=== PATIENT | female | born 1975 | race African-American/Black ===

== ENCOUNTER 2016-08-24 13:24 | Emergency (ER) | payer OTHER ==
[2016-08-24 13:58] VITALS: BP 127/87; PULSE 78; TEMP 97.7; BMI 20.9
--- NOTE | 2016-08-24 15:57 | PDOC ---
History of Present Illness - General Chief Complaint: Back Pain Stated Complaint: BRUISE ON ARM AND BACK Time Seen by Provider: 08/24/16 15:23 History Source: Patient Exam Limitations: No Limitations - History of Present Illness Initial Comments: 08/24/16 15:59 Patient is here with multiple complaints including #1 a itchy type rash to her left mid thigh inner aspect times one week , no pain, no drainage, no one else in the home is affected, has taken no medication or provided no relief #2 low back pain and spasm 3-4 days, has taken no medications for relief, is uncertain as to cause #3 Right knee clicking and pain 2 months Occurred: reports: last week Severity: reports: mild Associated Symptoms (Fall): denies symptoms Past History - Travel Traveled outside of the country in the last 30 days: No Close contact w/someone who was outside of country & ill: No - Past Medical History Allergies/Adverse Reactions: Allergies Allergy/AdvReac Type Severity Reaction Status Date / Time Penicillins Allergy Verified 08/24/16 13:58 Home Medications: Ambulatory Orders NK [No Known Home Medication] 08/24/16 Psychiatric Problems: Yes (DEPRESSION) - Psycho/Social/Smoking Cessation Hx Anxiety: No Suicidal Ideation: No Smoking History: Current every day smoker Have you smoked in the past 12 months: No Number of Cigarettes Smoked Daily: 5 Information on smoking cessation initiated: No Hx Alcohol Use: No Drug/Substance Use Hx: No Trauma Specific PMHX - Complaint Specific PMHX Back Injury: No Neck Injury: No Review of Systems - Review of Systems Able to Perform ROS?: Yes Is the patient limited Armenian proficient: Yes Constitutional: Yes: Symptoms Reported, See HPI, Malaise. No: Fever HEENTM: No: Symptoms Reported Respiratory: No: Symptoms reported ABD/GI: No: Symptoms Reported : No: Symptoms Reported Musculoskeletal: Yes: Symptoms Reported, See HPI, Back Pain Integumentary: Yes: Symptoms Reported, See HPI, Rash (inner left thigh) Neurological: Yes: Symptoms reported, See HPI, Tingling. No: Headache All Other Systems: Reviewed and Negative *Physical Exam - Vital Signs Last Vital Signs Temp Pulse Resp BP Pulse Ox 97.7 F 78 18 127/87 100 08/24/16 13:54 08/24/16 13:54 08/24/16 13:54 08/24/16 13:54 08/24/16 13:54 - Physical Exam General Appearance: Yes: Nourished, Appropriately Dressed. No: Apparent Distress HEENT: positive: LOI, Normal ENT Inspection, TMs Normal, Pharynx Normal Respiratory/Chest: positive: Lungs Clear, Normal Breath Sounds Musculoskeletal: positive: Normal Inspection, Muscle Spasm. negative: Vertebral Tenderness (has some mild tension and minimal spasm noted to the paravertebral spinous muscles bilateral lumbar spine. No true bone tenderness, range of motion is unimpaired) Extremity: positive: Normal Capillary Refill, Normal Range of Motion, Other. 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, Fully Oriented, Alert, Normal Mood/ Affect, Normal Response, Motor Strength 5/5 Progress Note - Progress Note Progress Note: #1 pruritic rash, will treat with one dose of Decadron and topical hydrocortisone creams #2 back strain, will treat with NSAIDs and cyclobenzaprine #3 knee strain will treat with NSAIDs Medical Decision Making - Medical Decision Making 08/24/16 16:13 *DC/Admit/Observation/Transfer Diagnosis at time of Disposition: Spasm of back muscles, Rash - Discharge Dispostion Disposition: HOME Condition at time of disposition: Stable Admit: No - Patient Instructions Printed Discharge Instructions: DI for Back Strain or Sprain, DI for Rash Additional Instructions: Rest, no heavy lifting or exercise until pain is resolved Hot soaks to neck and low back as often as possible/hot showers or Jacuzzis No massage or therapy until spasm is gone Continue ibuprofen 2-200 mg tablets every 6 hours for the next 3 days then as needed for pain and swelling Cyclobenzaprine 1-10mg every 8 hours as needed for spasm Inspect house for any insects or infestations You have been given 1 dose of dexamethasone 10 mg for the itching rash. apply hydrocortisone cream twice daily until rash is resolved May use Benadryl 25 mg tablets every 8 hours as needed for itching If not significant improvement within 24 hours with medication and rest regime, followup with private physician for change in medications and /or therapy. - Post Discharge Activity Work/School Note: Back to Work
[2016-08-24] MEDS ORDERED: CYCLOBENZAPRINE HCL 10 MG TABLET (FP) PO ONE (16:02)
[2016-08-24] MEDS ORDERED: KETOROLAC TROMETHAMINE 60 MG/2 ML VIAL IM ONE (16:02)
[2016-08-24] MEDS ORDERED: DEXAMETHASONE SOD PHOSPHATE 10 MG/1 ML VIAL IM ONE (16:02)
[2016-08-24] MEDS ORDERED: KETOROLAC TROMETHAMINE 60 MG/2 ML VIAL ONE (16:07)
[2016-08-24] MEDS ORDERED: DEXAMETHASONE SOD PHOSPHATE 10 MG/1 ML VIAL ONE (16:07)
[2016-08-24] MEDS ORDERED: CYCLOBENZAPRINE HCL 10 MG TABLET (FP) ONE (16:08)
== END 2016-08-24 16:13 | disposition home or self-care (01) ==
LOC: JERFT 13:24 → JER 13:24 → JERFT 16:13
PROC: 3E033GC Introduction of Other Therapeutic Substance into Peripheral Vein, Percutaneous Approach (ICD-10-PCS; principal; 2016-08-24)
PROC: 3E023GC Introduction of Other Therapeutic Substance into Muscle, Percutaneous Approach (ICD-10-PCS; 2016-08-24)
DX: M62.830 Muscle spasm of back (principal); R21 Rash and other nonspecific skin eruption; F32.9 Major depressive disorder, single episode, unspecified; F17.210 Nicotine dependence, cigarettes, uncomplicated
CPT/HCPCS: 96372; 99281-25

== ENCOUNTER 2025-01-30 19:48 | Observation (INO) | payer OTHER ==
[2025-01-30] MEDS ORDERED: ACETAMINOPHEN INJECTION 100 ML ONE (20:36)
[2025-01-30] MEDS ORDERED: CEFEPIME HCL/D5W 2 GM/50 ML BAG IVPB ONE (20:57)
[2025-01-30 20:58] LABS: ABSOLUTE IMMATURE GRANULOCYTES 0.02 x10^3/uL (0.0-0.031); BASOPHILS # 0.03 x10^3/uL (0.01-0.08); EOSINOPHIL % 2.3 % (0.7-5.8); EOSINOPHILS # 0.14 x10^3/uL (0.04-0.36); HEMATOCRIT 44.2 % (34.1-44.9); MCHC 36.2 g/dl (32.2-35.5); MEAN CELL VOLUME 84.4 fl (79.4-94.8); MEAN PLT VOLUME 10.7 fl (9.4-12.3); MONOCYTE % 6.6 % (4.7-12.5); PLATELET COUNT 314 x10^3/uL (182-369); RDW 12.5 % (12.2-17.1)
[2025-01-30] MEDS ORDERED: VANCOMYCIN 1 GM PREMIX (F) 1 GM/200 ML BAG ONE (20:58)
[2025-01-30] MEDS: ACETAMINOPHEN 1000 MG/100 ML BAG IVPB ONE (21:01)
[2025-01-30] MEDS: CEFEPIME HCL 2 GM VIAL (RESTRICTED TO ID) IVPB ONE (21:01)
[2025-01-30 21:05] LABS: INR 0.98 (0.83-1.09); PROTHROMBIN TIME (PATIENT) 10.7 SEC (9.7-13.0)
[2025-01-30 21:07] LABS: ACTIVATED PTT 24.9 SECONDS (25.2-36.5)
[2025-01-30 21:18] LABS: POTASSIUM 3.2 mmol/L (3.5-5.1)
[2025-01-30 21:19] LABS: CALCIUM 7.4 mg/dL (8.5-10.1)
[2025-01-30 21:20] LABS: ALBUMIN 2.5 g/dl (3.4-5.0); BLOOD UREA NITROGEN 5.1 mg/dL (7-18)
[2025-01-30 21:23] LABS: CREATININE 0.4 mg/dL (0.55-1.3)
[2025-01-30 21:25] LABS: BILIRUBIN,TOTAL 0.4 mg/dL (0.2-1); TOT PROT 5.3 g/dl (6.4-8.2)
[2025-01-30] MEDS: CEFEPIME HCL 1 GM VIAL (RESTRICTED TO ID) IVPB ONE (21:58)
[2025-01-30] MEDS ORDERED: POTASSIUM CHLORIDE ORAL LIQUID 20 MEQ/15 ML ONE (22:00)
[2025-01-30 22:23] LABS: CHLORIDE 79 mmol/L (98-107); POTASSIUM 3.1 mmol/L (3.5-5.1)
[2025-01-30 22:24] LABS: CALCIUM 7.4 mg/dL (8.5-10.1)
[2025-01-30 22:25] LABS: CO2 22 mmol/L (21-32); GLUCOSE,RANDOM 71 mg/dL (74-106); MAGNESIUM 1.6 mg/dL (1.8-2.4)
[2025-01-30 22:28] LABS: CREATININE 0.6 mg/dL (0.55-1.3)
[2025-01-30 22:32] LABS: BLOOD UREA NITROGEN 5.1 mg/dL (7-18)
[2025-01-30] MEDS: POTASSIUM CHLORIDE ORAL LIQUID 20 MEQ/15 ML PO ONE (22:32)
[2025-01-30] MEDS: VANCOMYCIN 1,000 MG in DEXTROSE 5%-WATER - 250 ML IVPB ONE (22:45)
[2025-01-30 23:04] LABS: ERYTHROCYTE SEDIMENTATION RATE 37 mm/hr (0-20)
[2025-01-30] MEDS ORDERED: KCL 10 MEQ IVPB 10 MEQ/100 ML INFUS.BAG IVPB ONE (23:17)
[2025-01-30] MEDS ORDERED: MAGNESIUM 1GM/D5W - 1 GM/100 ML IVPB IVPB ONE (23:17)
[2025-01-30 23:36] LABS: ANION GAP 13 mmol/L (4-13); SODIUM 114 mmol/L (136-145)
[2025-01-31 00:18] LABS: BLOOD UREA NITROGEN 5.9 mg/dL (7-18)
[2025-01-31 00:21] LABS: CREATININE 0.7 mg/dL (0.55-1.3)
[2025-01-31] MEDS: MAGNESIUM 1GM/D5W - 1 GM/100 ML IVPB IVPB ONE (00:36)
[2025-01-31 00:49] LABS: CALCIUM 9.1 mg/dL (8.5-10.1); POTASSIUM 4.7 mmol/L (3.5-5.1)
[2025-01-31] MEDS ORDERED: ALBUTEROL SO4 0.083% IH SOL 2.5 MG/3 ML VIAL.NEB. NEB PRN (01:07)
[2025-01-31] MEDS ORDERED: MORPHINE SULFATE 2 MG/ML SYRINGE IM PRN (01:34)
[2025-01-31] MEDS: KCL 10 MEQ IVPB 10 MEQ/100 ML INFUS.BAG IVPB SCH (01:46)
[2025-01-31] MEDS: VANCOMYCIN 1 GM PREMIX (F) 1,000 MG/200 ML BAG IVPB SCH (10:24)
[2025-01-31] MEDS: ENOXAPARIN NA (PORCINE) 40 MG/0.4 ML DISP.SYRIN SQ SCH (10:25)
[2025-01-31 13:46] VITALS: BMI 25.7
[2025-01-31] MEDS: KETOROLAC TROMETHAMINE 15 MG/ML VIAL IVPUSH PRN (16:52)
[2025-01-31] MEDS: VANCOMYCIN 1 GM PREMIX (F) 1 GM/200 ML BAG IVPB SCH (21:50)
[2025-01-31] MEDS: VANCOMYCIN 1,000 MG in DEXTROSE 5%-WATER - 250 ML IVPB SCH (22:02)
[2025-02-01 02:30] VITALS: PULSE 73
[2025-02-01 07:33] LABS: HEMATOCRIT 36.7 % (34.1-44.9); HEMOGLOBIN 13.2 g/dL (11.2-15.7); MEAN PLT VOLUME 10.9 fl (9.4-12.3); PLATELET COUNT 311 x10^3/uL (182-369); RDW 12.3 % (12.2-17.1)
[2025-02-01 08:11] LABS: ALBUMIN 2.8 g/dl (3.4-5.0); BILIRUBIN,TOTAL 0.3 mg/dL (0.2-1); BLOOD UREA NITROGEN 5.8 mg/dL (7-18); CALCIUM 8.6 mg/dL (8.5-10.1); CREATININE 0.6 mg/dL (0.55-1.3); POTASSIUM 4.2 mmol/L (3.5-5.1)
[2025-02-01 12:00] VITALS: BP 122/72; RESP 18; TEMP 98.1
== END 2025-02-01 13:00 | disposition home or self-care (01) ==
LOC: JER 19:48 → JERBED 22:54 → J7W 01-31 07:05
PROVIDERS: ADMIT Hospitalist; ATTEND Family Medicine
PROC: 3E033NZ Introduction of Analgesics, Hypnotics, Sedatives into Peripheral Vein, Percutaneous Approach (ICD-10-PCS; principal; 2025-01-30)
PROC: 3E03329 Introduction of Other Anti-infective into Peripheral Vein, Percutaneous Approach (ICD-10-PCS; 2025-01-30)
PROC: 3E023GC Introduction of Other Therapeutic Substance into Muscle, Percutaneous Approach (ICD-10-PCS; 2025-01-30)
PROC: 3E0333Z Introduction of Anti-inflammatory into Peripheral Vein, Percutaneous Approach (ICD-10-PCS; 2025-01-30)
PROC: 3E0337Z Introduction of Electrolytic and Water Balance Substance into Peripheral Vein, Percutaneous Approach (ICD-10-PCS; 2025-01-30)
DX: L03.115 Cellulitis of right lower limb (principal); R60.0 Localized edema; M79.661 Pain in right lower leg; L53.8 Other specified erythematous conditions; F17.200 Nicotine dependence, unspecified, uncomplicated; J45.909 Unspecified asthma, uncomplicated; Z88.0 Allergy status to penicillin
CPT/HCPCS: 36415; 73560-TC-RT-FY; 73590-TC-RT-FY; 80048; 80053; 83605; 83735; 85025; 85027; 85610; 85651; 85730; 86140; 93005; 93010; 93971-TC; 96361; 96365; 96366; 96367; 96372; 96375; 99285-25; G0378